=== PATIENT | female | born 1985 | race Asian ===

== ENCOUNTER → 2024-06-23 11:51 | Outpatient (CLI) | payer OTHER, SELFPAY ==
[2024-06-23 12:18] LABS: Add Manual Diff / Slide Review NO; Basophils Absolute Auto 100 /uL (0-100); Basophils Percent Auto 0.8 % (0-2); Eosinophils Absolute Auto 100 /uL (0-450); Eosinophils Percent Auto 1.1 % (2-4); Hematocrit 39.2 % (36-46); Hemoglobin 13.2 g/dL (12.0-16.0); Lymphocytes Absolute Auto 1200 /uL (1100-4500); Lymphocytes Percent Auto 14.5 % (25-40); Mean Corpuscular HGB Conc 33.6 % (30-36); Mean Corpuscular Hemoglobin 28.7 PG (26-34); Mean Corpuscular Volume 85.6 fL (80-100); Monocytes Absolute Auto 500 /uL (0-900); Monocytes Percent Auto 5.9 % (3-14); Neutrophils Absolute Auto 6600 /uL (1500-7000); Neutrophils Percent Auto 77.7 % (50-75); Platelet Count 310 X10^3/uL (150-400); Red Blood Cell Count 4.58 X10^6/uL (4.0-5.2); Red Cell Distribution Width 14.2 % (11.6-14.8); White Blood Cell Count 8.4 X10^3/uL (4.5-11.0)
[2024-06-23 12:56] LABS: Natera Collection Specimen Collected
[2024-06-23 13:08] LABS: Appearance Urine UA CLEAR; Bilirubin Urine UA NEGATIVE (NEGATIVE); Color Urine UA YELLOW; Glucose Urine UA NEGATIVE (Negative); Ketones Urine UA NEGATIVE (NEGATIVE); Leukocyte Esterase Urine UA NEGATIVE (NEGATIVE); Nitrite Urine UA NEGATIVE (Negative); Occult Blood Urine UA NEGATIVE (Negative); Protein Urine UA NEGATIVE (Negative); Urobilinogen Urine UA 0.2 E.U./dL (0.2)
[2024-06-23 15:12] LABS: Hepatitis B Surface Antigen NEGATIVE s/c (NEGATIVE); Rubella Antibody IgG 47.1 IU/mL (>15)
[2024-06-23 15:24] LABS: HIV 1 & 2 Ab/Ag 4th Gen Combo NEGATIVE (NEGATIVE); Hep C Virus Ab w/Reflex Quant NEGATIVE s/c (NEGATIVE)
[2024-06-24 04:36] LABS: RPR Screen Non Reactive (Non Reactive)
[2024-06-24 09:38] LABS: Varicella IgG Antibody Reactive (Non Reactive)
== END ==
PROVIDERS: Referring Provider Student in an Organized Health Care Education/Training Program; Visit Provider Student in an Organized Health Care Education/Training Program
DX: Z34.00 Encounter for supervision of normal first pregnancy, unspecified trimester (principal)
CPT/HCPCS: 80055; 81003; 86787; 86803; 86850; 86900; 86901; 87086; 87389

== ENCOUNTER 2024-08-17 17:13 | Emergency (ER) | payer OTHER, SELFPAY ==
[2024-08-17] VITALS (10 sets, daily range): BP systolic 121–138; BP diastolic 71–95; PULSE 69–86; RESP 18–20; TEMP 37.2; O2SAT 98–100; BMI 32.3
--- NOTE | 2024-08-17 17:41 | DI.US.S_ITS ---
PROCEDURE: US OB LIMITED INDICATIONS: vaginal bleeding, 18 weeks OUTSIDE/PRIOR DATING DATA: Last menstrual period (LMP): Uncertain. LMP-based estimated date of delivery (BRYAN): 01/17/2025. First dating scan (date and location): 06/13/2024. Estimated date of delivery (BRYAN) from first dating scan: 01/16/2025. The calculations are made using the ultrasound BRYAN of 01/16/2025. TECHNIQUE: Real-time scanning was performed of the fetus, with image documentation. Endovaginal scanning: Yes COMPARISON: None. FINDINGS: A single living intrauterine gestation is present. Presentation: Cephalic with the head tilted towards the left side Placenta: Low-lying posterior placenta covering the os with previa Amniotic fluid index: 11 cm, normal range is 5-24 cm. Single deepest vertical pocket is 3.1 cm. heart rate: 165 beats per minute. Maternal cervical canal: 3.3 cm long. Normal lower limit is 2.5 cm. Estimated gestational age from initial scan: 18 weeks and 1 day. Blood products present on the transvaginal ultrasound probe. IMPRESSION: 1. Single live intrauterine gestation with an estimated gestational age of 18 weeks and 1 day. 2. Low-lying placenta with previa. These findings were communicated via telephone to the ordering provider, Dr Menard, by Neftaly Stevens MD on 08/17/2024 at 8:23 p.m. Dictated by: Neftaly Stevens M.D. on 08/17/2024 at 20:15 Approved by: Neftaly Stevens M.D. on 08/17/2024 at 20:23
[2024-08-17 18:27] LABS: Add Manual Diff / Slide Review NO; Basophils Absolute Auto 100 /uL (0-100); Basophils Percent Auto 1.2 % (0-2); Eosinophils Absolute Auto 100 /uL (0-450); Eosinophils Percent Auto 1.2 % (2-4); Hemoglobin 11.9 g/dL (12.0-16.0); Lymphocytes Absolute Auto 1500 /uL (1100-4500); Mean Corpuscular Hemoglobin 29.7 PG (26-34); Mean Corpuscular Volume 87.5 fL (80-100); Monocytes Absolute Auto 700 /uL (0-900); Neutrophils Absolute Auto 6700 /uL (1500-7000); Neutrophils Percent Auto 73.6 % (50-75); Platelet Count 290 X10^3/uL (150-400); Red Cell Distribution Width 13.8 % (11.6-14.8); White Blood Cell Count 9.1 X10^3/uL (4.5-11.0)
[2024-08-17 18:39] LABS: Alanine Aminotransferase 41 IU/L (<35); Albumin 4.2 g/dL (3.5-5.0); Albumin Globulin Ratio 1.4 (1.0-2.8); Alkaline Phosphatase 61 U/L (38-126); Aspartate Aminotransferase 33 IU/L (14-36); BUN Creatinine Ratio 15.9 (6-22); Bilirubin Total 0.3 mg/dL (0.2-1.3); Blood Urea Nitrogen 7 mg/dL (7-17); Calcium 9.3 mg/dL (8.4-10.2); Carbon Dioxide 21 mmol/L (22-32); Chloride 107 mmol/L (98-107); Estimated Glomerular Filt Rate > 60 mL/min (>60); Glucose 74 mg/dL (70-99); HEMOLYSIS < 15 (0-50); Potassium 3.4 mmol/L (3.4-5.1); Sodium 138 mmol/L (137-145); Total Protein 7.2 g/dL (6.3-8.2)
[2024-08-17 18:56] LABS: HCG Quantitative /Beta subunit 14581 mIU/mL
--- NOTE | 2024-08-17 20:44 | ED_ITS ---
HPI - General Adult General Chief complaint: Vaginal Bleeding Stated complaint: 18 wks pregnt, vaginal bleeding Time Seen by Provider: 08/17/24 19:53 Mode of arrival: Ambulatory History of Present Illness HPI narrative: 39-year-old primigravida reports last normal 04/12/2024, EDC 01/17/2025, has care through Dr. Lynn, recalls small amount of spotting weeks ago during the apparently not evaluated with any imaging, well this morning, this afternoon about 3:00 p.m. urinated without incident, some lower abdominal cramping, urinated again 4:00 p.m., had a small mount of blood in the bowl, on wiping had small amount of bright red blood. Here for further evaluation. No fevers or chills. Related Data Home Medications Medication Instructions Recorded Confirmed vitamin-ferrous sulfate tab PO 06/01/24 07/12/24 27 mg iron-folic acid 0.8 mg tablet biotin 1,000 mcg chewable tablet 1,000 mcg PO DAILY 06/13/24 07/12/24 aspirin 81 mg tablet,delayed 81 mg PO DAILY 08/09/24 08/09/24 release (Adult Low Dose Aspirin) Allergies Allergy/AdvReac Type Severity Reaction Status Date / Time No Known Drug Allergies Allergy Verified 08/09/24 10:29 Patient History Medical History (Updated 08/17/24 @ 22:12 by Tonya Madrigal MD) Infertility Chicken pox Surgical History (Updated 06/01/24 @ 11:03 by Anali Clarke, RN) History of hysteroscopy [place] teeth extracted Family History (Updated 06/01/24 @ 11:07 by Anali Clarke, RN) Mother Heart disease S/P CABG x 3 Father Diabetes mellitus Benign prostatic hyperplasia Grandfather Heart attack Grandmother No problems noted. Grandfather No problems noted. Grandmother Diabetes mellitus Aunt Breast cancer Bone cancer Aunt Cancer Uncle Heart attack Social History marital status: household members: spouse lives independently: Yes caregiver/support person: No housing: [facility] ([facility]) pets and animals: Yes (cat and dog) education level: college (some college, currently in nursing school) occupational status: employed ([employer] in [employer]) current occupational exposures/hazards: Yes special flower needs: No travel history: recent (domestic only) seatbelt use: always water heater temp set < 120 deg: Yes working smoke detector in home: Yes fire extinguisher in home: Yes carbon monox detector in home: Yes firearms in home: No do you feel safe at home: Yes (answered w/ present on speaker) Smoking Status: Never smoker Tobacco: How many years used: 1 alcohol intake: former (very rarely when not ) substance use type: does not use during the past year weight has: increased > 10 lbs (~10 lb) well-balanced diet: rarely or never daily servings fruits/ve-1 (1-2) caffeine: Yes (single cup coffee in AM) Type(s) of exercise: walking Smoking Status: Never smoker Exam Narrative Exam Narrative: GENERAL: Well-developed patient, in mild distress. HEAD: Atraumatic. Normocephalic. EYES: Pupils equal round and reactive. Extraocular motions intact. No scleral icterus. No injection or drainage. ENT: Nose without bleeding, purulent drainage. Throat without erythema, tonsillar hypertrophy or exudate. Airway patent. NECK: Trachea midline. Non tender CARDIOVASCULAR: Regular rate and rhythm without murmurs, gallops, or rubs. RESPIRATORY: Clear to auscultation. Breath sounds equal bilaterally. No wheezes, rales, or rhonchi. GASTROINTESTINAL: Abdomen soft, non-tender, nondistended. EXTREMITIES: No edema or joint tenderness. BACK: Nontender without deformity or crepitance. No flank tenderness. NEURO: AOx3. Motor functions grossly nonfocal SKIN: No rash or erythema of visible areas Initial Vital Signs Initial Vital Signs: Vital Signs Temperature 98.9 F 08/17/24 17:34 Pulse Rate 73 08/17/24 17:34 Respiratory Rate 20 08/17/24 17:34 Blood Pressure 129/80 08/17/24 17:34 Pulse Oximetry 100 08/17/24 17:34 Oxygen Delivery Method Room Air 08/17/24 17:34 Course Orders Ordered: ED Orders 08/17/24 17:41 US OB limited Stat 08/17/24 17:56 Urinalysis and Microscopic Stat 08/17/24 18:07 Complete Blood Count AUTO DIFF Stat Comprehensive Metabolic Panel Stat HCG Quantitative /Beta subunit Stat Type and Screen Stat Vital Signs Vital signs: Vital Signs - 8 hr 08/17/24 22:05 08/17/24 22:05 08/17/24 22:23 Pulse Rate 69 73 Respiratory Rate 18 Blood Pressure 138/74 127/71 Pulse Oximetry 99 98 Oxygen Delivery Method Room Air Room Air Medical Decision Making Lab Data Lab results reviewed: Yes I reviewed the patient's lab results. Lab results narrative: White blood cell count 9100, hemoglobin 11.9, platelets 290,000. Renal function normal. Glucose 74. Serum CO2 21. Electrolytes unremarkable. Serum hCG 09507. Blood type O positive. Antibody screen negative. 08/17/24 18:07 08/17/24 18:07 Labs: Lab Results 08/17/24 08/17/24 Range/Units 17:56 18:07 WBC 9.1 (4.5-11.0) X10^3/uL RBC 4.00 (4.0-5.2) X10^6/uL Hgb 11.9 L (12.0-16.0) g/dL Hct 35.0 L (36-46) % MCV 87.5 (80-100) fL MCH 29.7 (26-34) PG MCHC 34.0 (30-36) % RDW 13.8 (11.6-14.8) % Plt Count 290 (150-400) X10^3/uL Neut % (Auto) 73.6 (50-75) % Lymph % (Auto) 16.0 L (25-40) % [place] % (Auto) 8.0 (3-14) % Eos % (Auto) 1.2 L (2-4) % Baso % (Auto) 1.2 (0-2) % Neut # (Auto) 6700 (9345-8299) /uL Lymph # (Auto) 1500 (6714-5870) /uL [place] # (Auto) 700 (0-900) /uL Eos # (Auto) 100 (0-450) /uL Baso # (Auto) 100 (0-100) /uL Sodium 138 (137-145) mmol/L Potassium 3.4 (3.4-5.1) mmol/L Chloride 107 (98-107) mmol/L Carbon Dioxide 21 L (22-32) mmol/L BUN 7 (7-17) mg/dL Creatinine 0.44 L (0.52-1.04) mg/dL Estimated GFR > 60 (>60) mL/min BUN/Creatinine Ratio 15.9 (6-22) Glucose 74 (70-99) mg/dL Calcium 9.3 (8.4-10.2) mg/dL Total Bilirubin 0.3 (0.2-1.3) mg/dL AST 33 (14-36) IU/L ALT 41 H (<35) IU/L Alkaline Phosphatase 61 (38-126) U/L Total Protein 7.2 (6.3-8.2) g/dL Albumin 4.2 (3.5-5.0) g/dL Globulin 3.0 (1.7-4.1) g/dL Albumin/Globulin Ratio 1.4 (1.0-2.8) HCG, Quant 20807 mIU/mL Urine Color Yellow Urine Appearance Clear Urine pH 6.0 (4.5-8.0) Ur Specific [place] <=1.005 (1.000-1.035) Urine Protein Negative (Negative) Urine Glucose (UA) Negative (Negative) g/dL Urine Ketones Negative (NEGATIVE) Urine Occult Blood Negative (Negative) Urine Nitrate Negative (Negative) Urine Bilirubin Negative (NEGATIVE) Urine Urobilinogen 0.2 (0.2) E.U./dL Ur Leukocyte Esterase Negative (NEGATIVE) Urine RBC None seen (0-5/HPF) Urine WBC None seen (0-5/HPF) Ur Squamous Epith Cells 0-1 /hpf (0-5/HPF) Urine Bacteria None seen (None) Ur Culture Indicated? Cult not indicated Vol Urine Centrifuged 10ml (spun) Blood Type O Positive Antibody Screen Negative Imaging Data OB ultrasound greater than 14 weeks: Radiologist's Impression: [place] [id number] Ultrasound Report Signed Patient: Sky Wright MR#: [id number] : 1985 Acct:[id number] Age/Sex: 39 / F Date of Service: 08/17/24 Loc: ED Accession Number: [id number] Procedure: US OB limited Ordering Provider: Tristan Harrison MD PROCEDURE: US OB LIMITED INDICATIONS: vaginal bleeding, 18 weeks OUTSIDE/PRIOR DATING DATA: Last menstrual period (LMP): Uncertain. LMP-based estimated date of delivery (BRYAN): 01/17/2025. First dating scan (date and location): 06/13/2024. Estimated date of delivery (BRYAN) from first dating scan: 01/16/2025. The calculations are made using the ultrasound BRYAN of 01/16/2025. TECHNIQUE: Real-time scanning was performed of the fetus, with image documentation. Endovaginal scanning: Yes COMPARISON: None. FINDINGS: A single living intrauterine gestation is present. Presentation: Cephalic with the head tilted towards the left side Placenta: Low-lying posterior placenta covering the os with previa Amniotic fluid index: 11 cm, normal range is 5-24 cm. Single deepest vertical pocket is 3.1 cm. heart rate: 165 beats per minute. Maternal cervical canal: 3.3 cm long. Normal lower limit is 2.5 cm. Estimated gestational age from initial scan: 18 weeks and 1 day. Blood products present on the transvaginal ultrasound probe. IMPRESSION: 1. Single live intrauterine gestation with an estimated gestational age of 18 weeks and 1 day. 2. Low-lying placenta with previa. These findings were communicated via telephone to the ordering provider, Dr Menard, by Neftaly Stevens MD on 08/17/2024 at 8:23 p.m. Dictated by: Neftaly Stevens M.D. on 08/17/2024 at 20:15 Approved by: Neftaly Stevens M.D. on 08/17/2024 at 20:23 MDM Narrative Medical decision making narrative: 39-year-old female primigravida with 2nd trimester lower abdominal cramping and some slight bleeding. Ultrasound done while patient in the waiting room was suspicious for a low-lying placenta previa, still having some cramping. Blood type O positive. Keep NPO. We will contact Ob, possible transfer to birthing center. Ob ultrasound greater than 14 weeks type study, shows live IUP [place] gestation 18 weeks 1 day, with low-lying placenta, no obvious abruptio. Cervical length 3.3 cm with no proximal dilatation. Per phone call discussion with Radiology, see report. 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 2129, case discussed with Obstetrics on-call Dr Madrigal who will come see patient in the emergency department. 2209, evaluation by ObGyn who felt patient can be discharged home with pelvic rest. No lifting >15 pounds at her [employer]ICAL FE[employer] job. Discharged home. FU with her Ob provider Dr Xiong Discharge Plan Departure Patient Disposition: Home Clinical Impression: Second trimester bleeding Placenta previa Qualifiers: Trimester: second trimester Qualified Code(s): O44.02 - Complete placenta previa NOS or without hemorrhage, second trimester Activity Restrictions/Additional Instructions: Vaginal bleeding in context of 2nd trimester current . Placenta previa noted on ultrasound. Evaluation in the emergency department by night shift on- call Dr Madrigal, who felt that you could go home. Pelvic rest advised. Avoid lifting more than 15 lbs. Follow up with your obstetrics provider. Return if any further bleeding or cramping symptoms. Prescriptions: No Action biotin 1,000 mcg tablet,chewable 1,000 mcg PO DAILY aspirin [Adult Low Dose Aspirin] 81 mg tablet,delayed release (DR/EC) 81 mg PO DAILY vit-ferrous sulfat-FA 27 mg iron- 0.8 mg tablet PO Referrals: Provider,Verna MAYA [Primary Care Provider] - Ivonne Moreira MD [Physician] - Stand Alone Forms: Patient Portal/API/Survey
[2024-08-17 20:53] LABS: Appearance Urine UA CLEAR; Bilirubin Urine UA NEGATIVE (NEGATIVE); Color Urine UA YELLOW; Glucose Urine UA NEGATIVE (Negative); Ketones Urine UA NEGATIVE (NEGATIVE); Leukocyte Esterase Urine UA NEGATIVE (NEGATIVE); Nitrite Urine UA NEGATIVE (Negative); Occult Blood Urine UA NEGATIVE (Negative); Protein Urine UA NEGATIVE (Negative); Specific Gravity Urine UA <=1.005 (1.000-1.035); Urobilinogen Urine UA 0.2 E.U./dL (0.2)
[2024-08-17 21:00] LABS: Bacteria Urine None Seen; RBC Urine None Seen (0-5/HPF); Squamous Epithelial Cell Urine 0-1 /HPF (0-5/HPF); Urine Volume 10mL (spun); WBC Urine None Seen (0-5/HPF)
[2024-08-17 21:01] LABS: Culture Indicated Urine Cult Not Indicated
--- NOTE | 2024-08-17 21:02 | PC.NURSE ---
Pt reports bright red blood when she uses the bathroom and only a few drops on her panty liner.
--- NOTE | 2024-08-17 22:04 | P.CONS_ITS ---
History of Present Illness Consult details Date Patient Seen: 08/17/24 Time Patient Seen: 22:04 Chief complaint: 18 wks pregnt, vaginal bleeding Reason for consult: vaginal bleeding in 2nd trimester, abnormal US Narrative: 39yo G1 at 18w1d D=8wk US presents to ED with c/o new onset painless vaginal bleeding. Pt states that she first noticed spotting in peripad prior to void on arriving home to work, increase in painless bleeding thereafter vitaliy to moderate menses and then stopped. She presented to ED for evaluation and underwent transabdominal as well as pelvic US that resulted significant for viable [place] IUP, low-lying placenta with marginal previa. OBGYN consulted for further evaluation and management recommendations. On my arrival patient is resting comfortably in bed, NAD, spouse at bedside. She affirms narrative history as above. +FM, notes scant spotting following pelvic US but none since and is not currently bleeding. Denies pelvic pain, dysuria, constipation. No recent intimacy. Meds Home Medications and Allergies Home Medications Medication Instructions Recorded Confirmed Type vitamin-ferrous sulfate tab PO 06/01/24 07/12/24 History 27 mg iron-folic acid 0.8 mg tablet biotin 1,000 mcg chewable tablet 1,000 mcg PO DAILY 06/13/24 07/12/24 History aspirin 81 mg tablet,delayed 81 mg PO DAILY 08/09/24 08/09/24 History release (Adult Low Dose Aspirin) Allergies Allergy/AdvReac Type Severity Reaction Status Date / Time No Known Drug Allergies Allergy Verified 08/09/24 10:29 Review of Systems Review of Systems ROS: Yes All systems reviewed with the patient and are negative except as otherwise documented Exam Vital Signs (past 8 hours): - 08/17/24 17:34 08/17/24 20:29 08/17/24 20:29 Temperature 98.9 F Pulse Rate 73 81 Pulse Rate [Orthostatic Lying] Pulse Rate [Orthostatic Sitting] Pulse Rate [Orthostatic Standing] Respiratory Rate 20 Blood Pressure 129/80 132/95 H Blood Pressure [Orthostatic Lying] Blood Pressure [Orthostatic Sitting] Blood Pressure [Orthostatic Standing] Pulse Oximetry 100 Oxygen Delivery Method Room Air 08/17/24 20:30 08/17/24 20:39 08/17/24 20:39 Temperature Pulse Rate 81 86 Pulse Rate [Orthostatic Lying] Pulse Rate [Orthostatic Sitting] Pulse Rate [Orthostatic Standing] Respiratory Rate Blood Pressure 133/83 Blood Pressure [Orthostatic Lying] Blood Pressure [Orthostatic Sitting] Blood Pressure [Orthostatic Standing] Pulse Oximetry 100 99 Oxygen Delivery Method Room Air 08/17/24 20:57 Temperature Pulse Rate Pulse Rate [Orthostatic Lying] 76 Pulse Rate [Orthostatic Sitting] 73 Pulse Rate [Orthostatic Standing] 84 Respiratory Rate Blood Pressure Blood Pressure [Orthostatic Lying] 129/80 Blood Pressure [Orthostatic Sitting] 121/80 Blood Pressure [Orthostatic Standing] 134/83 Pulse Oximetry Oxygen Delivery Method Oxygen Delivery Method Room Air Const General: cooperative, healthy appearing and well developed Nutritional Appearance: overweight Orientation: alert, awake and oriented x3 Limitations: mental status not altered Resp Effort & Inspection: normal respiratory effort and able to speak in complete sentences Cardio Pulses: normal peripheral pulses Other: deferred per shared decision making with patient Skin General: no rashes or lesions noted Neuro General: patient alert, patient awake and patient oriented x3 Extrem General: normal to inspection Psych Mental Status: mental status grossly normal Judgment: judgment good Objective Imaging US - abdomen: My impression: low-lying placenta with previa CVL wnl Radiologist's impression: A single living intrauterine gestation is present. Presentation: Cephalic with the head tilted towards the left side Placenta: Low-lying posterior placenta covering the os with previa Amniotic fluid index: 11 cm, normal range is 5-24 cm. Single deepest vertical pocket is 3.1 cm. heart rate: 165 beats per minute. Maternal cervical canal: 3.3 cm long. Normal lower limit is 2.5 cm. Estimated gestational age from initial scan: 18 weeks and 1 day. Blood products present on the transvaginal ultrasound probe. IMPRESSION: 1. Single live intrauterine gestation with an estimated gestational age of 18 weeks and 1 day. 2. Low-lying placenta with previa. Labs 08/17/24 18:07 08/17/24 18:07 Labs: Laboratory Results - last 24 hr 08/17/24 08/17/24 17:56 18:07 WBC 9.1 RBC 4.00 Hgb 11.9 L Hct 35.0 L MCV 87.5 MCH 29.7 MCHC 34.0 RDW 13.8 Plt Count 290 Neut % (Auto) 73.6 Lymph % (Auto) 16.0 L [place] % (Auto) 8.0 Eos % (Auto) 1.2 L Baso % (Auto) 1.2 Neut # (Auto) 6700 Lymph # (Auto) 1500 [place] # (Auto) 700 Eos # (Auto) 100 Baso # (Auto) 100 Sodium 138 Potassium 3.4 Chloride 107 Carbon Dioxide 21 L BUN 7 Creatinine 0.44 L Estimated GFR > 60 BUN/Creatinine Ratio 15.9 Glucose 74 Calcium 9.3 Total Bilirubin 0.3 AST 33 ALT 41 H Alkaline Phosphatase 61 Total Protein 7.2 Albumin 4.2 Globulin 3.0 Albumin/Globulin Ratio 1.4 HCG, Quant 52798 Urine Color Yellow Urine Appearance Clear Urine pH 6.0 Ur Specific [place] <=1.005 Urine Protein Negative Urine Glucose (UA) Negative Urine Ketones Negative Urine Occult Blood Negative Urine Nitrate Negative Urine Bilirubin Negative Urine Urobilinogen 0.2 Ur Leukocyte Esterase Negative Urine RBC None seen Urine WBC None seen Ur Squamous Epith Cells 0-1 /hpf Urine Bacteria None seen Ur Culture Indicated? Cult not indicated Vol Urine Centrifuged 10ml (spun) Blood Type O Positive Antibody Screen Negative [facility] Medical History (Updated 08/17/24 @ 22:12 by Tonya Madrigal MD) Infertility Chicken pox Surgical History (Updated 06/01/24 @ 11:03 by Anali Clarke, RN) History of hysteroscopy [place] teeth extracted Family History (Updated 06/01/24 @ 11:07 by Anali Clarke, RN) Mother Heart disease S/P CABG x 3 Father Diabetes mellitus Benign prostatic hyperplasia Grandfather Heart attack Grandmother No problems noted. Grandfather No problems noted. 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) current occupational exposures/hazards: Yes special flower needs: No travel history: recent (domestic only) Safety seatbelt use: always water heater temp set < 120 deg: Yes working smoke detector in home: Yes fire extinguisher in home: Yes carbon monox detector in home: Yes firearms in home: No do you feel safe at home: Yes (answered w/ present on speaker) Tobacco & Substance Use Smoking Status: Never smoker Tobacco: How many years used: 1 alcohol intake: former (very rarely when not ) substance use type: does not use Diet and Exercise during the past year weight has: increased > 10 lbs (~10 lb) well-balanced diet: rarely or never daily servings fruits/ve-1 (1-2) caffeine: Yes (single cup coffee in AM) Type(s) of exercise: walking Assessment & Plan Assessment and plan (1) Second trimester bleeding: Status: Acute (2) Placenta previa: Qualifiers: Trimester: second trimester Qualified Code(s): O44.02 - Complete placenta previa NOS or without hemorrhage, second trimester Status: Acute Plan 39yo G1 at 18w1d D=8wk US presents to ED with new onset painless vaginal bleeding in second trimester, abnormal US with evidence of previa Low-lying placenta with previa pt counseled on exam findings, strict pelvic rest and weight lifting precautions reviewed rh+, awaiting call to schedule DI-FAS with MFM (referral secondary to AMA, h/o ART although current conceived naturally) strict interval bleeding precautions reviewed message sent to primary OB via workload (Dr. Moreira) to facilitate further f/u as indicated encouraged to continue efforts to establish with new OB (impending move out of state to [place]) in setting of high risk work letter provided re: excused absence 08/18-, weight lifting restrictions thereafter dispo: to home with routine outpatient f/u Time-Based Coding :: [TOTAL MINUTES] spent with patient and on the chart (including review of chart, obtaining history, exam, reviewing outside data, placing orders, documenting exam and treatment plan, and counseling patient) on [DATE]. PROFEE Charge Codes Inpatient or Observation consultation: 46753
== END 2024-08-17 22:26 | disposition home or self-care (01) ==
PROVIDERS: Emergency Medicine; Emergency Provider Emergency Medicine
DX: O44.52 Low lying placenta with hemorrhage, second trimester (principal); Z3A.18 18 weeks gestation of pregnancy
CPT/HCPCS: 76815; 76817; 80053; 81001; 84702; 85025; 86850; 86900; 86901; 99281; 99284